=== PATIENT | female | born 1960 | race Caucasian/White ===

== ENCOUNTER → 2019-09-22 10:06 | Outpatient (CLI) | payer OTHER, SELFPAY ==
[2019-06-09 08:12] VITALS: BMI 35.2
--- NOTE | 2019-09-22 10:07 | NM_ITS ---
CLINICAL: 58-year-old female with reported history of clinical hyperparathyroidism. 99m Tc SESTAMIBI DUAL PHASE PARATHYROID SCINTIGRAPHY COMPARISON: None available FINDINGS: Following the intravenous administration of 26.4 mCi of 99m Tc sestamibi, image acquisitions of the anterior neck at 15 minutes and 2.0 hours post radiopharmaceutical provision reveal: 1. Immediate static blood pool acquisitions demonstrate distribution of the radiopharmaceutical in the right-left thyroid colloid of a visualized U-shaped thyroid gland. 2. Delayed images depict subtle persistent tracer concentration noted in the region of the superior pole of the right thyroid bed. NM/Parathyroid Scan IMPRESSION: 1. The persistent visualized radiopharmaceutical concentration defined in the superior pole of the right thyroid bed likely represents a small parathyroid adenoma. Electronically Signed: Augustus Alegria DO at 8:10 EDT Tel , Service support ,
== END ==
PROVIDERS: PCP Family Medicine; Referring Provider Internal Medicine Endocrinology, Diabetes & Metabolism; Visit Provider Internal Medicine Endocrinology, Diabetes & Metabolism
DX: E21.0 Primary hyperparathyroidism (principal)
CPT/HCPCS: 78070; A9500

== ENCOUNTER → 2019-10-16 11:36 | Outpatient (CLI) | payer OTHER, SELFPAY ==
[2019-06-09 08:12] VITALS: BMI 35.2
--- NOTE | 2019-10-16 11:36 | US_ITS ---
STUDY: THYROID ULTRASOUND REASON FOR EXAM: Female, 58 years old. PARATHYROIDISM TECHNIQUE: Ultrasound evaluation of the thyroid was performed with real-time and static rain-scale imaging. COMPARISON: Comparison is made with prior nuclear medicine examination dated September 22, 2019. FINDINGS: RIGHT LOBE: The right lobe of the thyroid gland measures 5 cm x 1.7 cm x 1.6 cm. There is a homogeneous echotexture. There is a 4 mm x 4 mm x 3 mm cyst in the upper pole of the right lobe. There is also evidence of a 2 mm x 3 mm x 3 mm solid/cystic nodule in the midpole of the right lobe. Lateral and superior to the midportion of the right lobe of the thyroid, 2 hypodense nodules are seen. The larger measures 1.6 cm x 0.6 cm x 0.3 cm. These most likely represent small lymph nodes. LEFT LOBE: The left lobe of the thyroid gland measures 4.9 cm x 1.7 cm x 1.5 cm. There is a homogeneous echotexture. There is a 9 mm x 12 mm x 5 mm hypoechoic solid nodule in the midportion of the left lobe. ISTHMUS: The isthmus measures 4.0 mm. US/Thyroid IMPRESSION: Mild enlargement of the right lobe of the thyroid with 2 small nodules. Adjacent to the right lobe of the thyroid, 2 well-defined hypodense nodules are seen most likely representing lymph nodes. Small hypoechoic solid nodule in the midportion of the left lobe of the thyroid. Electronically Signed: Boogie Maria, at 9:10 EDT , Service support ,
== END ==
PROVIDERS: PCP Family Medicine; Referring Provider Surgery; Visit Provider Surgery
DX: E21.0 Primary hyperparathyroidism (principal); E04.1 Nontoxic single thyroid nodule
CPT/HCPCS: 76536

== ENCOUNTER → 2020-02-27 | Outpatient (CLI) | payer OTHER, SELFPAY ==
[2019-10-17 09:19] VITALS: BMI 35.2
== END | disposition home or self-care (01) ==
LOC: LABSPEC 17:34
PROVIDERS: PCP Family Medicine; Referring Provider Family Medicine; Visit Provider Family Medicine
DX: Z20.828 Contact with and (suspected) exposure to other viral communicable diseases (principal)
CPT/HCPCS: 87635; C9803; U0003

== ENCOUNTER → 2021-10-05 | Outpatient (CLI) | payer OTHER, SELFPAY | END | disposition home or self-care (01) | PROVIDERS: PCP Family Medicine; Visit Provider Physician Assistant | DX: R30.9 Painful micturition, unspecified (principal) | CPT/HCPCS: 87086; 87088 ==

== ENCOUNTER → 2021-11-23 | Outpatient (CLI) | payer OTHER, SELFPAY ==
[2021-11-23 15:47] LABS: Bacteria 0 SEEN /hpf (None Seen); Mucous, Urine 0 SEEN /hpf (<or=2+)
[2021-11-23 15:59] LABS: Color, Urine Red (Yellow); Glucose, Dipstick Normal (Normal); Ketone-Dipstick 5 mg/dl (Negative); Leukocyte Esterase-Dipstick 100 /ul (Negative); Nitrite-Dipstick Negative (Negative); Occult Blood-Urine 250 /ul (Negative); Protein-Dipstick 500 mg/dl (Negative); Urine Bilirubin Dipstick Negative (Negative); Urine Clarity Turbid (Clear); Urine Urobilinogen Normal (Normal)
[2021-11-23 16:30] LABS: Red Blood Cells-Urine > 100 SEEN /hpf (0-5); Squamous Epithelial Cells - UA 5-10 SEEN /hpf (5-10); White Blood Cells 5-10 SEEN /hpf (0-5)
== END | disposition home or self-care (01) ==
PROVIDERS: PCP Family Medicine; Visit Provider Physician Assistant Medical
DX: N39.0 Urinary tract infection, site not specified (principal)
CPT/HCPCS: 81001; 87086; 87088

== ENCOUNTER → 2021-11-24 | Outpatient (CLI) | payer OTHER, SELFPAY ==
[2021-11-24 12:34] LABS: Anion Gap 8 (5-15); BUN 21 mg/dL (7-18); BUN/Creat Ratio 24.8 RATIO (10-20); Calcium,Total 9.3 mg/dL (8.5-10.1); Chloride 106 mmol/L (98-107); Creatinine, Serum 0.85 mg/dL (0.55-1.02); EST Glomerular Filtration Rate 72 mL/min (>60); Est Glom Filt Rate - Afr Amer 87 mL/min (>60); Glucose 136 mg/dL (74-106); Potassium 3.7 mmol/L (3.5-5.1); Sodium Level 142 mmol/L (136-145)
== END | disposition home or self-care (01) ==
LOC: LAB 11:07
PROVIDERS: PCP Family Medicine; Visit Provider Physician Assistant Medical
DX: N39.0 Urinary tract infection, site not specified (principal)
CPT/HCPCS: 36415; 80048

== ENCOUNTER → 2022-07-30 | Outpatient (CLI) | payer OTHER, SELFPAY ==
--- NOTE | 2022-07-30 15:40 | US_ITS ---
STUDY: RENAL ULTRASOUND - COMPLETE REASON FOR EXAM: Female, 61 years old. Flank pain and fever TECHNIQUE: Ultrasound evaluation of the kidneys was performed with real-time and static feliciano-scale imaging. COMPARISON: None. FINDINGS: RIGHT KIDNEY: Normal location of the right kidney, which is normal in size. The right kidney measures 9.7 x 4.4 x 4.3 cm. There is a normal cortex of the right kidney. The renal cortex measures 1.4 cm. There is no right renal mass or cyst. 2 nonobstructing stones noted, larger measures 4 mm. There is no right hydronephrosis. DISTAL RIGHT URETER: There is non-visualization of the distal right ureter. There is no demonstrated right ureterovesical junction calculus. There is a visualized right ureteral jet. LEFT KIDNEY: Normal location of the left kidney, which is normal in size. The left kidney measures 9.5 x 4 x 5.1 cm. There is a normal cortex of the left kidney. The renal cortex measures 1.5 cm. There is no left renal mass or cyst. There are multiple nonobstructing stones, largest measures 7 mm. There is no left hydronephrosis. DISTAL LEFT URETER: There is non-visualization of the distal left ureter. There is no demonstrated left ureterovesical junction calculus. There is a visualized left ureteral jet. AORTA: There is no elongation or tortuosity of the abdominal aorta. I.V.C.: The IVC is patent. BLADDER: The distended urinary bladder has a volume of 234.86 ml. The empty urinary bladder has a volume of 8.10 ml. There is a normal wall thickness of the distended urinary bladder. There is no demonstrated mass within the urinary bladder. There are no demonstrated bladder calculi. Incidental note made of a 1.2 cm hepatic cyst US/Kidney and Bladder IMPRESSION: No obstructive uropathy or suspicious solid renal lesion Bilateral nonobstructing renal stones Electronically Signed: Mir Quintanilla MD at 19:38 EDT ,
== END | disposition home or self-care (01) ==
LOC: US 15:39
PROVIDERS: PCP Family Medicine; Referring Provider Urology; Visit Provider Urology
DX: N39.0 Urinary tract infection, site not specified (principal)
CPT/HCPCS: 76770

== ENCOUNTER → 2022-08-12 | Outpatient (CLI) | payer OTHER, SELFPAY ==
--- NOTE | 2022-08-12 14:43 | CT_ITS ---
STUDY: CT ABDOMEN AND PELVIS WITHOUT CONTRAST REASON FOR EXAM: Female, 61 years old. KIDNEY STONES RADIATION DOSAGE (If Supplied By Facility): CTDIvol = ( 11.21 ) mGy, DLP = ( 546.33 ) mGycm TECHNIQUE: Transaxial images were obtained from the dome of the diaphragm to the symphysis pubis without oral contrast, and without intravenous contrast. Sagittal and coronal images were reconstructed. Individualized dose optimization techniques were used for this CT. COMPARISON: None. FINDINGS: The visualized lung bases are unremarkable. The visualized portions of the heart are within normal limits. There is a 1 cm x 0.9 cm hypodensity in the inferior aspect of the right lobe of the liver suggestive of a possible small cyst. The patient is status post cholecystectomy. Normal spleen. Normal pancreas. Normal bilateral adrenal glands. Normal right kidney. Normal left kidney. Normal visualized stomach. Normal small intestine. There are multiple colonic diverticula consistent with diverticulosis. The appendix is visualized and appears normal. There is scattered atherosclerotic calcification of the abdominal aorta, without a demonstrated aneurysm. Normal inferior vena cava. There is borderline retroperitoneal lymphadenopathy with enlarged nodes no greater than 10mm in the short axis diameter. Normal urinary bladder. Questionable 2 mm calculus in the distal portion of the left ureter just proximal to the ureterovesical junction. There is a small umbilical hernia containing fat. Normal osseous structures. CT/Abdomen/Pelvis without Cont IMPRESSION: Questionable 2 mm calculus in the distal portion of the left ureter. Electronically Signed: Boogie Maria MD at 15:37 EDT ,
== END | disposition home or self-care (01) ==
LOC: CT 14:42
PROVIDERS: PCP Family Medicine; Referring Provider Urology; Visit Provider Urology
DX: N20.0 Calculus of kidney (principal)
CPT/HCPCS: 74176

== ENCOUNTER 2023-01-05 08:00 | Outpatient (RCR) | payer OTHER, SELFPAY ==
--- NOTE | 2022-11-09 14:33 | HP.PTEVAL_ITS ---
Patient's Visit Information Visit Information Visit Information: CARLOS FRANCISCO is a 61 year old F referred to Physical Therapy by Dr. Barb Sanchez MD with a diagnosis of URINARY INCONTINENCE. Date of Evaluation: 11/09/22 Physical Therapist: Sybil Guillaume PT, Cert MDT Visit Plan Frequency: 1x/Week Duration: 2-4 Months Plan: PF THERAPY FOR STRENGTHENING, LENGTHENING/RELAXATION AND ENDURANCE PRETTY MELISSA. URINARY URGE EDUCATION. HEALTHY BLADDER HABIT EDUCATION. TRAINING IN COORDINATION OF PELVIC FLOOR MUSCULATURE WITH HIP AND CORE (TRANSVERSE ABDOMINUS) MUSCULATURE. CORE STRENGTHENING. CAPRICE LE ROM, STRETCHING AND STRENGTHENING. TRAINING IN ABDOMINAL CAVITY PRESSURE MGMT WITH ADL'S. Subjective Subjective: Work/Leisure: RETIRED BUT WORKS APPROX 10 HRS A WK [employer]. Disability: NO Present symptoms: URINE LEAKING DUE TO PHYSICAL ACTIVITY. URINARY LEAKAGE RELATED TO FEELING OF URGENCY. FREQUENT URINATION. PATIENT REPORTS URINARY LEAKING ABOUT ONCE A DAY (MUCH BETTER). PATIENT DENIES PAIN OR DISCOMFORT IN LOWER ABDOMNAL OR GENITAL AREA. Present since: ABOUT 1.5 YRS AGO Pain Scale: N/A Is it getting better, worse or staying the same: GETTING BETTER Commenced as a result of: UTI Worse: STEPPING ON TO A COLD FLOOR BAREFOOT. WEATHER CHANGE HOT TO COLD. WALKING UP STEPS. SOMETIMES AT NIGHT. SNEEZING. Better: GETTING INFECTION CLEARED UP. PROBIOTICS. MORAN SUPPLEMENT. INCREASED VITAMIN C Disturbed sleep: 0-1 Previous history/Previous treatment: H/O UTI'S BUT RECENTLY FREQUENTLY - NOT GOING AWAY. ON MEDS FOR 5 YEARS IN 20'S. Coughing/sneezing/straining: POSITIVE FOR LEAKING AT TIMES. Gait: NORMAL How long can you delay the need to urinate: USUALLY NEEDED. Prolapse (Falling out feeling): NO Frequency of Urination: ABOUT EVERY 3-4 HOURS Ability to stop urine flow: MOST OF THE TIME Ability to initiate urine stream: YES. PATIENT DENIES DIFFICULTY EMPTYING BLADDER Dyspareunia: N/A Bowel Incontinence: NO Accidents: NO Unexplained weight loss: NO Imagin08/12/[address]: MPRESSION: Questionable 2 mm calculus in the distal portion of the left ureter. RESULTS OF 07/30/22 RENAL US: IMPRESSION: No obstructive uropathy or suspicious solid renal lesion Bilateral nonobstructing renal stones PMH/Recent major surgery: NIDDM. Meniere's Dz., HTN. ACID REFLUX. HYSTERECTOMY 2012 Objective Objective: Sitting/Standing Posture: POOR. FH. RSH'S Other Observations: INDEP GAIT AND TRANSFER Sensory deficit: CAPRICE LE LIGHT TOUCH SENSATION GROSSLY INTACT AND SYMMETRICAL ROM deficit: TIGHT CAPRICE GASTROC-SOLEUS COMPLEX'S. Motor deficit: CAPRICE LE'S GROSSLY 5/5 WITH MMT'ING EXCEPT HIPS 4/5. PATIENT COMMUNICATES A GOOD UNDERSTANDING OF HOW TO CONTRACT PF AND HOLD FOR A COUNT OF 10. Dural Signs: NEGATIVE CAPRICE LE'S. Lumbar mvmt loss: flex - NIL ext - MOD R SG - MOD L SG - MOD PATIENT DENIES PAIN WITH LUMBAR ROM TESTING. Core strength: POOR FUNCTIONAL SCREEN: Incontinence Impact Questionnaire Score: 3 Urogenital Distress Inventory Score: 7 Goals Goal 1:: DECREASE C/O URINARY LEAKAGE EPISODES. Goal Time Frame: 6-8 Weeks Goal 2:: PATIENT WILL consistently SUCCESSFULLY DELAY VOIDING LONG NEEDED WHEN URGENCY OCCURS TO SUCCESSFULLY MAKE IT TO THE BATHROOM. Goal Time Frame: 2-4 Weeks Goal 3:: PATIENT WILL DEMONSTRATE/COMMUNICATE 10 CONSISTENT AND CONSECUTIVE 10 SECOND PELVIC FLOOR MUSCLE CONTRACTIONS TO DEMONSTRATE IMPROVED PELVIC FLOOR ENDURANCE. Goal Time Frame: 6-8 Weeks Goal 4:: DEVELOP HEALTHY FLUID INTAKE HABITS NEEDED WITH FLUID INTAKE OF ? BODY WEIGHT IN OUNCES PER DAY AND 2/3 BEING WATER. Goal Time Frame: 2-4 Weeks Goal 5:: PATIENT WILL BE INDEP WITH A HEP/HOME INSTRUCTIONS FOR CONTINUED IMPROVEMENT ONCE FORMAL PHYSICAL THERAPY CONCLUDES. Goal Time Frame: 6-8 Weeks Anticipated Interventions Patient/Client Instruction: Educate patient on: Condition, Plan of Care and Risk Factors For the Purpose of:: To improve self management Therapeutic Exercise to Include: Strength training, Endurance training, Flexibilty training and Neuromotor development For the Purpose of:: To improve muscle performance and motor function, To increase tolerance to activity/condition/position and To improve ability of physical actions for home/community/work/leisure Text: Thank you for the opportunity to evaluate your patient. For Medicare and Medicare HMO plans, please review the plan of care and approve it. It will need to be FAXED BACK to us at [phone] for Medicare purposes. For Medicare only, by signing this I certify the plan of care. Please let me know if there are questions or concerns regarding this plan of care. Physician Signature: Date:
--- NOTE | 2023-01-05 08:30 | HP.PTDCSUM_ITS ---
Discharge Summary D/C summary: It has been my pleasure to treat CARLOS FRANCISCO referred by Dr. Barb Sanchez MD, with the diagnosis of URINARY INCONTINENCE for a total of 9 visit(s). Discharge Date: 01/05/23 Please see the following information for a summary of their discharge status. Subjective Subjective: PATIENT STATES IT'S SO MUCH BETTER. Overall Improvement % Improvement: 95 Objective Objective/Function: THIS PATIENT HAS DONE REALLY WELL WITH PHYSICAL THERAPY FOR UI AND IS APPROPRIATE FOR DISCHARGE TO [facility] AT THIS POINT. FUNCTIONAL SCREEN: Incontinence Impact Questionnaire Score: 0 Urogenital Distress Inventory Score: 3 Goals Goal 1:: DECREASE C/O URINARY LEAKAGE EPISODES. Goal Progress: Goal Met Goal 2:: PATIENT WILL consistently SUCCESSFULLY DELAY VOIDING LONG NEEDED WHEN URGENCY OCCURS TO SUCCESSFULLY MAKE IT TO THE BATHROOM. Goal Progress: Goal Met Goal 3:: PATIENT WILL DEMONSTRATE/COMMUNICATE 10 CONSISTENT AND CONSECUTIVE 10 SECOND PELVIC FLOOR MUSCLE CONTRACTIONS TO DEMONSTRATE IMPROVED PELVIC FLOOR ENDURANCE. Goal Progress: Goal Met Goal 4:: DEVELOP HEALTHY FLUID INTAKE HABITS NEEDED WITH FLUID INTAKE OF ? BODY WEIGHT IN OUNCES PER DAY AND 2/3 BEING WATER. Goal Progress: Progressing Goal 5:: PATIENT WILL BE INDEP WITH A HEP/HOME INSTRUCTIONS FOR CONTINUED IM PROVEMENT ONCE FORMAL PHYSICAL THERAPY CONCLUDES. Goal Progress: Goal Met Plan Plan: D/C TO HEP. PATIENT AGREEABLE. D/C Information d/c sentence: If there are questions or concerns regarding this patient's physical therapy, please feel free to call me at [phone]. Thank you for the referral of this patient. Sincerely, Sybil Guillaume, PT, Cert MDT Balance/Gait/Functional tests Improvement % Improvement: 95
== END 2023-01-05 19:00 | disposition home or self-care (01) ==
LOC: PT 08:00
PROVIDERS: PCP Family Medicine; Referring Provider Urology; Visit Provider Urology
DX: R32 Unspecified urinary incontinence (principal)
CPT/HCPCS: 97162; 97530

== ENCOUNTER 2024-03-11 18:58 | Emergency (ER) | payer OTHER, SELFPAY ==
[2024-03-11 18:59] VITALS: BP 173/86; PULSE 81; RESP 16; TEMP 36.1; O2SAT 99
--- NOTE | 2024-03-11 19:27 | ED.VIS.LOWEX ---
HPI History of Present Illness Chief Complaint: Lower Extremity Injury Informant: patient and family Narrative Narrative: Presents here with son left knee injury prior to arrival. Walking down porch steps with a ladder she stumbled fell on her left side on her hip however pain is more in her knee. No head injuries. No medications taken prior to arrival. Pain worse with ambulation. No neck or back pain. No chest pains. [facility] Medical History Hyperparathyroidism History of endometrial cancer Vitamin D deficiency GERD (gastroesophageal reflux disease) Pneumonia Parathyroid abnormality High triglycerides High cholesterol Hypertension High calcium levels Goiter Gallstone Diabetes Back problem Seasonal allergies Home Medications ?Medication ?Instructions ?Recorded ?Last Taken ?Type aspirin 81 mg tablet,delayed 81 mg PO DAILY 06/09/19 Unknown History release bisoprolol fumarate 5 mg tablet 5 mg PO DAILY 06/09/19 Unknown History cholecalciferol (vitamin D3) 125 125 mcg PO DAILY 06/09/19 Unknown History mcg (5,000 unit) capsule metformin 500 mg tablet 500 mg PO BID 06/09/19 Unknown History omeprazole 40 mg capsule,delayed 40 mg PO DAILY 06/09/19 Unknown History release simvastatin 20 mg tablet 20 mg PO DAILY 06/09/19 Unknown History triamterene 100 mg capsule 100 mg PO DAILY 06/09/19 Unknown History valacyclovir 500 mg tablet 500 mg PO DAILY 06/09/19 Unknown History clobetasol 0.05 % topical ointment g topical 10/17/19 Unknown History potassium chloride 20 mEq meq PO 10/17/19 Unknown History tablet,extended release(part/cryst) cephalexin 500 mg capsule 500 mg PO BID #20 caps 11/23/21 Unknown Rx Allergy/AdvReac Type Severity Reaction Status Date / Time phenazopyridine (From AdvReac Severe Vomiting Verified 03/11/24 18:58 Pyridium) povidone-iodine (From AdvReac Intermediate Hives Verified 03/11/24 18:58 Betadine) soap (From Betadine) AdvReac Intermediate Hives Verified 03/11/24 18:58 Sulfa (Sulfonamide AdvReac Intermediate Hives Verified 03/11/24 18:58 Antibiotics) amoxicillin (From Augmentin) AdvReac Unknown Unknown Verified 03/11/24 18:58 clavulanic acid (From AdvReac Unknown Unknown Verified 03/11/24 18:58 Augmentin) Family History Father Arthritis Hypertension Grandfather Arthritis BLOOD TRANSFUSION Cancer Mother Diabetes Myocardial infarction, Onset Age: 75 Hypertension Heart disease Sister Diabetes Brother Diabetes Other High cholesterol Surgical History H/O CHOLECYSTECTOMY H/O: hysterectomy Social History Smoking Status: Never smoker alcohol intake: current alcohol intake frequency: holidays/special occasions only Alcohol type: wine substance use type: does not use what type of physical activity do you participate in: none ROS ROS ED Constitutional Constitutional ED: Denies chills, fever(s) or sweats Eyes Eyes: Denies change in vision ENT ENT ED: Denies dysphagia or sore throat Cardiovascular Cardiovascular: Denies chest pain, leg edema, palpitations or racing heartbeat Respiratory/Chest Respiratory/Chest: Denies cough, dyspnea or dyspnea on exertion Gastrointestinal Gastrointestinal: Denies abdominal pain, diarrhea, nausea or vomiting Genitourinary Genitourinary ED: Denies dysuria, hematuria or urinary frequency Musculoskeletal Musculoskeletal: Reports extremity pain and other Details: Left knee pain. ; Denies back pain or neck pain Integumentary Denies rash or wounds Neurologic Neurologic: Denies headache(s), paresthesias or weakness EXAM Physical Exam Const Vital Signs: 03/11/24 18:59 03/11/24 20:24 Temperature 97 F L 97 F L Temperature Source Temporal Pulse Rate 81 81 Respiratory Rate 16 16 Blood Pressure 173/86 H 158/89 H Blood Pressure Mean 115 112 Pulse Ox 99 99 Oxygen Delivery Method Room Air Positive well nourished and well developed Constitutional Narrative: GCS 15. General Appearance ED: well developed and NAD HEENT Reports moist mucous membranes normocephalic and atraumatic Eyes General Eye ED: Yes normal appearance of both eyes Neck no lymphadenopathy and supple General: Negative for tenderness Chest Wall Chest: Negative for tenderness Resp normal respiratory effort and normal air movement Effort and Inspection: symmetric chest movement; Negative for respiratory distress Cardio regular rate, regular rhythm and no murmurs Peripheral Pulses: pulses 2+ throughout GI normal to inspection, nondistended, normoactive bowel sounds and non-tender Palpation: Negative for guarding or rebound tenderness present Back/Spine no CVA tenderness and no thoracic nor lumbar tenderness Extremity Extremity Narrative: Left lower extremity: Negative logroll. Knee extensor mechanism intact. No swelling knee. Negative varus and valgus. Negative Ra's. Reproduced tenderness with knee flexion against resistance more at the hamstrings insertion on the lateral aspect. No defects no ecchymosis noted posteriorly. General Extremety ED: Yes tenderness; Negative for edema General Extremity: Negative for edema Neuro oriented x3 and no sensory deficits noted Sensorium / Orientation: awake and alert Skin no rashes or lesions noted and no wounds MDM MDM MDM Narrative Medical decision making narrative: Interventions / MDM: Differential diagnosis: Hamstring strain Diagnosis considered but do not suspect: No clinical knee ligament pain. No meniscus pain on examination. Fracture however x-ray negative. My EKG interpretation: N/A Imaging independently reviewed and interpreted by myself: Left knee x-ray 4 views: No acute process. External documents reviewed: N/A Test considered but not ordered:N/A ED course: Patient declines any pain medicines. Exam seems to have more pain hamstrings exertion lateral aspect there is no defects or ecchymosis. No deforms the knee. However secondary to fall and injury will obtain x-ray of the left knee. X-ray negative. She is reassured. Tony wrap provided. Declines crutches ED as she states she has some at home. She will use Tylenol or Motrin as needed. Outpatient follow-up. All questions were answered. Re-evaluation: stable Disposition discussed with patient/family/significant other: Patient and family Case discussed with consulting clinician: N/A This note was generated with [employer] dictation software. It may contain incorrect words, spelling, and punctuation that were not noted in checking the note before signing. Radiography Diagnostic Testing: Clinical Impression(s) from Imaging Studies Knee X-Ray 03/11/24 19:30 IMPRESSION: No acute bony injury. Electronically Signed: Michael Ramesh MD at 20:06 EST Reading Location ID and State: [facility] / [place] Tel , Service support , Discharge Plan Triage Chief Complaint: Lower Extremity Injury ED Provider: Oziel Castro Dx/Rx/DC Orders Clinical Impression: Left hamstring muscle strain, Fall Instructions: ED Muscle Strain, Extremity Prescriptions: No Action metformin 500 mg tablet 500 mg PO BID triamterene 100 mg capsule 100 mg PO DAILY bisoprolol fumarate 5 mg tablet 5 mg PO DAILY valacyclovir 500 mg tablet 500 mg PO DAILY cholecalciferol (vitamin D3) 125 mcg (5,000 unit) capsule 125 mcg PO DAILY simvastatin 20 mg tablet 20 mg PO DAILY aspirin 81 mg tablet,delayed release (DR/EC) 81 mg PO DAILY omeprazole 40 mg capsule,delayed release(DR/EC) 40 mg PO DAILY potassium chloride 20 mEq tablet,ER particles/crystals PO clobetasol 0.05 % ointment TOPICAL Patient Comments: APPLY TO AFFECTED AREA NIGHTLY X 6 WEEKS, THEN USE 1 TIME WEEKLY FOR MAINTENANCE cephalexin 500 mg capsule 500 mg PO BID Qty: 20 0RF Primary Care Provider: Gilson Angeles Referrals: Gilson Angeles MD [Primary Care Provider] - 1-2 Weeks Activity Restrictions/Additional Instructions: Left knee x-ray negative. Your exam concerns for distal insertion hamstring strain. Use Tylenol or Motrin as needed. Tony wrap for comfort. Use your crutches at home as needed. Follow-up with your doctor. Print Language: Lithuanian Disposition Disposition: Home, Self Care Discharge Date/Time: 03/11/24 20:35
--- NOTE | 2024-03-11 19:30 | RAD_ITS ---
INDICATION: Trauma, injury, pain EXAMINATION/TECHNIQUE: X-RAY - LEFT XR Knee Complete 4 Views or More 4 VIEWS COMPARISON: None. FINDINGS: SOFT TISSUES: No soft tissue swelling or gas. No radiopaque foreign body. BONES/JOINTS: No acute fracture. Joint spaces anatomically aligned with mild tricompartmental degenerative changes. No sclerotic or destructive changes observed. RAD/Knee 4 or More Views IMPRESSION: No acute bony injury. Electronically Signed: Michael Ramesh MD at 20:06 EST ,
[2024-03-11 20:24] VITALS: BP 158/89; PULSE 81; RESP 16; TEMP 36.1; O2SAT 99
== END 2024-03-11 20:35 | disposition home or self-care (01) ==
PROVIDERS: Emergency Provider Emergency Medicine; PCP Family Medicine; Referring Provider Emergency Medicine; Visit Provider Emergency Medicine
DX: S76.312A Strain of muscle, fascia and tendon of the posterior muscle group at thigh level, left thigh, initial encounter (principal); E11.9 Type 2 diabetes mellitus without complications; I10 Essential (primary) hypertension; E78.00 Pure hypercholesterolemia, unspecified; Z90.710 Acquired absence of both cervix and uterus; W10.9XXA Fall (on) (from) unspecified stairs and steps, initial encounter; S76.812A Strain of other specified muscles, fascia and tendons at thigh level, left thigh, initial encounter; Y93.01 Activity, walking, marching and hiking; Y92.89 Other specified places as the place of occurrence of the external cause; Z85.89 Personal history of malignant neoplasm of other organs and systems; Z79.82 Long term (current) use of aspirin; Z79.84 Long term (current) use of oral hypoglycemic drugs; K21.9 Gastro-esophageal reflux disease without esophagitis; Z79.899 Other long term (current) drug therapy; Z90.49 Acquired absence of other specified parts of digestive tract
CPT/HCPCS: 73564; 99282